=== PATIENT | male | born 1990 | race Caucasian/White ===

== ENCOUNTER 2016-10-17 19:34 | Emergency (ER) | payer OTHER ==
[~2016-10-17] VITALS: Ht 182.9 cm; Wt 84.1 kg
[2016-10-17 19:37] VITALS: TEMP 97.8
[2016-10-17 21:09] LABS: BASO % 0.7 % (0.0-2.0); EOS # 0.1 (0.0-0.7); EOS % 1.5 % (0-4.0); GRAN # 3.9 (1.4-6.5); GRAN % 64.8 % (42.2-75.2); HEMATOCRIT 39.8 % (42.0-52.0); HEMOGLOBIN 14.2 g/dl (13.5-18.0); LYMPH # 1.6 (1.2-3.4); LYMPH % 25.7 % (20.0-51.0); MEAN CELL VOLUME 88 fl (80.0-100.0); MEAN CORPUSCULAR HEMOGLOBIN 31 pg (27.0-31.0); MEAN CORPUSCULAR HGB CONC 36 g/dl (33.0-37.0); MEAN PLATELET VOLUME 9.6 fl (7.4-10.4); MONO # 0.4 (0.1-0.6); MONO % 7.1 % (1.7-9.3); PLATELET COUNT 223 K/mm3 (130-400); RED BLOOD COUNT 4.54 M/mm3 (4.20-5.60); REDCELL DISTRIBUTION WIDTH-CV 12.2 % (11.5-14.5); WHITE BLOOD COUNT 6.1 K/mm3 (4.8-10.8)
[2016-10-17 21:15] LABS: INR 1.1 (0.8-3.0); PROTHROMBIN TIME 12.3 SECONDS (9.7-12.8)
[2016-10-17 21:18] LABS: PARTIAL THROMBOPLASTIN TIME 29.4 SECONDS (26.0-37.0)
[2016-10-17 21:21] LABS: ADJUSTED CALCIUM 8.7 mg/dL (8.4-10.2); ALANINE AMINOTRANSFERASE 43 U/L (21-72); ALKALINE PHOSPHATASE 54 U/L (50-136); AMYLASE 99 U/L (30-110); ANION GAP 11 mmol/L (7-16); BILIRUBIN,TOTAL 0.6 mg/dL (0.0-1.0); BLOOD UREA NITROGEN 22 mg/dL (9-20); CALCIUM 8.7 mg/dL (8.4-10.2); CARBON DIOXIDE 26 mmol/L (22-30); CHLORIDE 102 mmol/L (98-107); CREATININE, serum 0.92 mg/dL (0.66-1.25); GLUCOSE 103 mg/dL (74-106); LIPASE 136 U/L (23-300); POTASSIUM 3.8 mmol/L (3.4-5.0); SODIUM 139 mmol/L (137-145); TOTAL PROTEIN 6.7 gm/dL (6.4-8.2)
[2016-10-17 21:24] LABS: C-REACTIVE PROTEIN < 0.5 mg/dL (0.0-0.9)
[2016-10-17 21:30] LABS: TROPONIN-I < 0.012 ng/mL (0.000-0.034)
[2016-10-17 22:33] VITALS: BP 122/67; PULSE 62
== END 2016-10-17 22:34 | disposition home or self-care (01) ==
LOC: COL.ER 19:34
PROVIDERS: Emergency Medicine
DX: R07.89 Other chest pain (principal)
CPT/HCPCS: J7030